=== PATIENT | male | born 1985 | race Caucasian/White ===

== ENCOUNTER 2017-01-19 16:48 | Emergency (ER) | payer BC, MEDICAID ==
[2017-01-19 16:54] VITALS: TEMP 99
--- NOTE | 2017-01-19 17:02 | C.PDOC ---
History Of Present Illness The patient, whose PMHx includes seizures, is brought to the ED by EMS for evaluation after experiencing a witnessed seizure episode prior to arrival. Patient states he missed a dose of his medication yesterday and was picking up his medication at the drugstore today prior to the onset of his symptoms. Patient is no longer in postictal state and denies tongue injury, urinary/bowel incontinence, extremity numbness/weakness. Time Seen by Provider: 01/19/17 17:02 Chief Complaint (Nursing): Seizure History Per: Patient, EMS History/Exam Limitations: no limitations Recent Seizure Activity Began: Just Before Arrival Number Of Seizures: One Length Of Seizures (Duration): Unknown Precipitating Factor(s): Missed Dose Of Anti-seizure Medication Post-ictal Period: No Severity: Mild Pain Scale Rating Of: 2 Recent travel outside of the [place]: No Additional History Per: Patient, EMS Past Medical History Reviewed: Historical Data, Nursing Documentation, Vital Signs Vital Signs: Last Vital Signs Temp 99.0 F 01/19/17 16:53 Pulse 104 H 01/19/17 16:53 Resp 22 01/19/17 16:53 BP 122/76 01/19/17 16:53 Pulse Ox 99 01/19/17 17:55 - Medical History PMH: Kidney Stones ("I HAVE 6 STONES"), Chronic Kidney Disease, Seizures (LAST WAS 1YR AGO) Surgical History: No Surg Hx - [facility] Procedures RETROGRADE PYELOGRAM (12/31/13) URETERAL CATHETERIZATION (12/31/13) Family History: States: Unknown Family Hx - Social History Hx Tobacco Use: No Hx Alcohol Use: No Hx Substance Use: No - Immunization History Hx Tetanus Toxoid Vaccination: No Hx Influenza Vaccination: No Hx Pneumococcal Vaccination: No Review Of Systems Constitutional: Negative for: Fever, Chills Eyes: Negative for: Vision Change ENT: Negative for: Mouth Pain Cardiovascular: Negative for: Chest Pain, Palpitations Respiratory: Negative for: Cough, Shortness of Breath Gastrointestinal: Negative for: Nausea, Vomiting, Abdominal Pain Genitourinary: Negative for: Incontinence Skin: Negative for: Rash, Lesions, Jaundice, Bruising Neurological: Positive for: Seizures. Negative for: Weakness, Numbness, Change in Speech, Confusion, Altered Mental Status, Headache, Dizziness Physical Exam - Physical Exam Appears: Non-toxic, No Acute Distress Skin: Warm, Dry Head: Normacephalic Eye(s): bilateral: Normal Inspection Oral Mucosa: Moist Tongue: No Bite, No Bleeding Neck: Supple Chest: Symmetrical, No Deformity, No Tenderness Cardiovascular: Rhythm Regular, No Murmur Respiratory: No Rales, No Rhonchi, No Wheezing Gastrointestinal/Abdominal: Soft, No Tenderness Extremity: Normal ROM, Capillary Refill (less than 2 seconds ) Neurological/Psych: Oriented x3 Gait: Steady ED Course And Treatment - Laboratory Results Result Diagrams: 01/19/17 17:34 01/19/17 17:34 O2 Sat by Pulse Oximetry: 99 (on RA ) Pulse Ox Interpretation: Normal Progress Note: Bloodwork ordered and reviewed. Keppra IVP and IV Fluids administered. Reevaluation Time: 18:24 Reassessment Condition: Improved Disposition Counseled Patient/Family Regarding: Studies Performed, Diagnosis, Need For Followup - Disposition Referrals: Juan Daniel Cole MD [Medical Doctor] - Disposition: HOME/ ROUTINE Disposition Time: 17:02 Condition: FAIR Instructions: Epilepsy (DC) Forms: [employer] (Jordanian) - Clinical Impression Clinical Impression: Seizure - Scribe Statement The provider has reviewed the documentation as recorded by the Scribe (Doreen Ortiz) Provider Attestation: All medical record entries made by the Scribe were at my direction and personally dictated by me. I have reviewed the chart and agree that the record accurately reflects my personal performance of the history, physical exam, medical decision making, and the department course for this patient. I have also personally directed, reviewed, and agree with the discharge instructions and disposition.
[2017-01-19] MEDS ORDERED: Sodium Chloride 0.9% 500 ML IV ONE ×2 (17:11→17:35)
[2017-01-19] MEDS ORDERED: levETIRAcetam 500 MG in Sodium Chloride 0.9% 100 ML IVPB STA (17:35)
[2017-01-19 17:43] LABS: BASO % 0.4 % (0.0-2.0); EOS % 0.3 % (0.0-4.0); HEMATOCRIT 42.6 % (35.0-51.0); LYMPH # 3.4 K/uL (1.0-4.3); LYMPH % 35.1 % (20.0-40.0); MEAN CELL VOLUME 90.6 fL (80.0-94.0); MEAN CORPUSCULAR HEMOGLOBIN 30.4 pg (27.0-31.0); MEAN CORPUSCULAR HGB CONC 33.5 g/dL (33.0-37.0); MEAN PLATELET VOLUME 7.6 fL (7.2-11.7); MONO # 0.6 K/uL (0.0-0.8); MONO % 6.3 % (0.0-10.0); NRBC % 0.1 % (0.0-2.0); RED CELL DISTRIBUTION WIDTH 14.7 % (11.5-14.5); WHITE BLOOD COUNT 9.7 K/uL (4.8-10.8)
[2017-01-19 17:45] LABS: CHLORIDE 103 mmol/L (98-107)
[2017-01-19 17:46] LABS: POTASSIUM 3.5 mmol/L (3.6-5.2); SODIUM 138 mmol/L (132-148)
[2017-01-19 17:48] LABS: GFR AFRICAN-AMERICAN > 60
[2017-01-19 17:49] LABS: BLOOD UREA NITROGEN 11 mg/dL (9-20); CALCIUM 8.8 mg/dl (8.6-10.4); CARBON DIOXIDE 17 mmol/L (22-30); GLUCOSE,RANDOM 96 mg/dL (75-110)
[2017-01-19 18:45] VITALS: BP 112/78; PULSE 68; RESP 18; O2SAT 98
== END 2017-01-19 18:45 | disposition home or self-care (01) ==
LOC: C.ER 16:48
DX: G40.909 Epilepsy, unspecified, not intractable, without status epilepticus (principal)
CPT/HCPCS: 80048; 80299; 84591; 85025; 96374; 99285; J1953; J7040

== ENCOUNTER 2017-02-21 08:56 | Day surgery (SDC) | payer OTHER ==
[2017-02-21 09:37] VITALS: BMI 27.1
[2017-02-21] MEDS ORDERED: Propofol 10 mg/ml Inj (20 ML) ONE (10:57)
[2017-02-21] MEDS ORDERED: Lidocaine Hydrochloride 5 ML INJ ONE (10:57)
--- NOTE | 2017-02-21 11:04 | CP.SDSHP ---
Same Day Surgery H & P - History Proposed Procedure: EGD Pre-Op Diagnosis: see notes - Previous Medical/Surgical History Cardiac: Hypertension Misc: Other Pain: 4.Moderate Pain - Allergies Allergies: Allergies carbamazepine [From Tegretol] Allergy (Intermediate, Verified 02/21/17 09:36) RASH loratadine [From Claritin] Allergy (Intermediate, Verified 02/21/17 09:36) SWELLING shellfish derived Allergy (Intermediate, Verified 02/21/17 09:36) SWELLING - Physical Exam General Appearance: N Vital Signs: Vital Signs 02/21/17 10:04 Temperature 98.4 F Pulse Rate 62 Respiratory 19 Rate Blood Pressure 120/61 O2 Sat by Pulse 99 Oximetry Mental Status: Alert & Oriented x3 Neuro: WNL Heart: WNL Lungs: WNL GI: Other - {Optional Preform as Required} Breast: WNL Abdomen: Other Rectal: Other Integument: WNL : WNL Ortho: WNL ENT: WNL - Impression Pt. Evaluated Today:Candidate for Anesthesia & Procedure: Yes - Date & Time Time: 11:05 Short Stay Discharge - Short Stay Discharge Admitting Diagnosis/Reason for Visit: DYSPEPSIA Disposition: HOME/ ROUTINE
[2017-02-21 11:29] VITALS: TEMP 97.5
[2017-02-21 11:37] VITALS: O2SAT 100
[2017-02-21 12:02] VITALS: BP 101/60; PULSE 60; RESP 16
== END 2017-02-21 12:20 | disposition home or self-care (01) ==
LOC: C.ENDO 08:56
PROVIDERS: ATTEND Specialist
DX: K29.60 Other gastritis without bleeding (principal); K20.9 Esophagitis, unspecified
CPT/HCPCS: 43239; 88305; 88342; J2704

== ENCOUNTER 2017-02-28 08:01 | Day surgery (SDC) | payer OTHER ==
[2017-02-28 08:34] VITALS: BMI 27.6
[2017-02-28] MEDS ORDERED: Propofol 10 mg/ml Inj (20 ML) ONE ×2 (09:28→09:46)
--- NOTE | 2017-02-28 09:38 | CP.SDSHP ---
Same Day Surgery H & P - History Proposed Procedure: colonscopy Pre-Op Diagnosis: SEE NOTES - Previous Medical/Surgical History Neuro: Other Misc: Other Pain: 4.Moderate Pain - Allergies Allergies: Allergies carbamazepine [From Tegretol] Allergy (Intermediate, Verified 02/28/17 08:34) RASH loratadine [From Claritin] Allergy (Intermediate, Verified 02/28/17 08:34) SWELLING shellfish derived Allergy (Intermediate, Verified 02/28/17 08:34) SWELLING - Physical Exam General Appearance: N Vital Signs: Vital Signs 02/28/17 08:30 Temperature 97.7 F Pulse Rate 79 Respiratory 20 Rate Blood Pressure 119/61 O2 Sat by Pulse 98 Oximetry Mental Status: Alert & Oriented x3 Neuro: WNL Heart: WNL Lungs: WNL GI: Other - {Optional Preform as Required} Breast: WNL Abdomen: Other Rectal: Other Integument: WNL : WNL Ortho: Other ENT: WNL - Impression Pt. Evaluated Today:Candidate for Anesthesia & Procedure: Yes - Date & Time Time: 09:38 Short Stay Discharge - Short Stay Discharge Admitting Diagnosis/Reason for Visit: DIARRHEA Disposition: HOME/ ROUTINE
[2017-02-28] MEDS ORDERED: Belladonna-Phenobarbital PO STA (09:49)
[2017-02-28] MEDS ORDERED: metroNIDAZOLE IV 500 mg/100 ml 500 MG/100 ML BAG IVPB STA (09:51)
[2017-02-28 11:27] VITALS: TEMP 98; O2SAT 100
[2017-02-28 12:10] VITALS: BP 92/42; PULSE 60; RESP 18
== END 2017-02-28 11:45 | disposition home or self-care (01) ==
LOC: C.ENDO 08:01
PROVIDERS: ATTEND Specialist
DX: R19.7 Diarrhea, unspecified (principal); K64.8 Other hemorrhoids; K58.9 Irritable bowel syndrome, unspecified
CPT/HCPCS: 43239; 88305; J2704

== ENCOUNTER 2018-04-16 06:50 | Emergency (ER) | payer MEDICAID, OTHER ==
[2018-04-16 06:50] VITALS: BMI 27.6
[2018-04-16 07:01] VITALS: TEMP 98.7
[2018-04-16] MEDS ORDERED: Sodium Chloride 0.9% 1,000 ML IV ONE (07:16)
[2018-04-16] MEDS ORDERED: Sodium Chloride 0.9% 1,000 ML ONE (07:21)
[2018-04-16 07:30] LABS: BASO # 0.1 K/uL (0.0-0.2); BASO % 0.7 % (0.0-2.0); EOS # 0.2 K/uL (0.0-0.7); EOS % 2.3 % (0.0-4.0); HEMOGLOBIN 14.7 g/dL (12.0-18.0); LYMPH # 3.8 K/uL (1.0-4.3); MEAN CELL VOLUME 89.5 fL (80.0-94.0); MEAN CORPUSCULAR HGB CONC 33.5 g/dL (33.0-37.0); MEAN PLATELET VOLUME 7.2 fL (7.2-11.7); MONO # 0.6 K/uL (0.0-0.8); MONO % 7.5 % (0.0-10.0); NEUT # 3.4 K/uL (1.8-7.0); NEUT % 42.5 % (50.0-75.0); NRBC % 0.1 % (0.0-2.0); RBC 4.9 Mil/uL (4.40-5.90); WHITE BLOOD COUNT 8.1 K/uL (4.8-10.8)
[2018-04-16 07:37] LABS: URINE BILIRUBIN NEGATIVE (NEGATIVE); URINE BLOOD NEGATIVE (NEGATIVE); URINE CLARITY Clear (Clear); URINE COLOR Yellow (YELLOW); URINE GLUCOSE (UA) NORMAL (Normal); URINE LEUKOCYTE ESTERASE NEG Leu/uL (Negative); URINE PROTEIN NEGATIVE (NEGATIVE); URINE UROBILINOGEN NORMAL mg/dL (0.2-1.0)
[2018-04-16 07:43] LABS: BLOOD UREA NITROGEN 14 mg/dL (9-20); GFR NON-AFRICAN AMERICAN > 60; LIPASE 55 U/L (23-300)
[2018-04-16 07:59] VITALS: BP 125/85; PULSE 69; RESP 18
--- NOTE | 2018-04-16 08:01 | C.PDOC ---
History Of Present Illness 33 years old male with PMHx of epilepsy, IBS, and Kidney stones presents to ED for complaints of right flank pain associated with nausea, dysuria and burning sensation on urination that began 1 week ago. Patient reports taking prescribed marijuana, Tylenol, and Motrin for relief. Patient also reports symptoms are similar to prior kidney stone symptoms. Denies penile discharge, diarrhea, hematuria, abdominal pain, chest pain, or any other physical complaints. Patient also states he passed his first kidney stone in January 2018. Patient also admits to smoking but denies drug use. He states Past Surgical History sleeve gastrectomy. Allergies: * Shellfish * Claritin Time Seen by Provider: 04/16/18 07:06 Chief Complaint (Nursing): Male Genitourinary History Per: Patient History/Exam Limitations: no limitations Onset/Duration Of Symptoms: Hrs Current Symptoms Are (Timing): Still Present Quality Of Discomfort: Burning Associated Symptoms: Nausea, Urinary Symptoms. 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 Negative for: Vomiting, Abdominal Pain, Diarrhea Genitourinary: Positive for: Dysuria. Negative for: Hematuria Musculoskeletal: Positive for: Other (Right flank pain ) Skin: Negative for: Rash Neurological: Negative for: Weakness, Numbness Physical Exam - Physical Exam Appears: Non-toxic, No Acute Distress, Other (Comfortable ) Skin: Normal Color, Warm, Dry, No Rash Head: Atraumatic, Normacephalic Eye(s): bilateral: Normal Inspection (Conjunctiva clear), PERRL, EOMI Oral Mucosa: Moist Neck: Normal ROM, Supple Chest: Symmetrical, No Tenderness Cardiovascular: Rhythm Regular, No Murmur, Other (Normal S1, S2) Respiratory: Normal Breath Sounds, No Rales, No Rhonchi, No Wheezing, Other (Good air movement, Lungs CTA bilaterally) Gastrointestinal/Abdominal: Bowel Sounds (Active ), Soft, No Tenderness, No Guarding, No Rebound Back: CVA Tenderness (Right sided ) Extremity: Normal ROM Extremity: Bilateral: Atraumatic (no cyanosis or edema), Normal Color And Temperature, Normal ROM Pulses: Left Radial: Normal, Right Radial: Normal, Left Dorsalis Pedis: Normal, Right Dorsalis Pedis: Normal Neurological/Psych: Oriented x3, Normal Speech, Normal Motor (5/5 strength ), Normal Sensation, Other (GCS 15, CN 2-12 intact.) Gait: Steady ED Course And Treatment - Laboratory Results Result Diagrams: 04/16/18 07:25 04/16/18 07:25 O2 Sat by Pulse Oximetry: 99 (RA) Pulse Ox Interpretation: Normal - CT Scan/US CT Abdomen/Pelvis Other Rad Studies (CT/US): Read By Radiologist, Radiology Report Reviewed CT/US Interpretation: Date of service: 04/16/2018. PROCEDURE: CT Abdomen and Pelvis. HISTORY: Abdominal pain. COMPARISON: None. TECHNIQUE: Contiguous helical/transaxial sections of the abdomen pelvis performed without oral or intravenous contrast material. Additional 2D sagittal and coronal reformats generated. Radiation dose: Total exam DLP = 486.91 mGy-cm. This CT exam was performed using one or more of the following dose reduction techniques: Automated exposure control, adjustment of the mA and/or kV according to patient size, and/or use of iterative reconstruction technique. FINDINGS: LOWER THORAX: The heart size within range of normal. No significant pericardial effusion. There is a small hiatal hernia. There is tiny pleural-based nodular density associated with adjacent parenchymal scarring right posterior sulcus. Lung bases otherwise clear. No evidence of effusion or basilar pneumothorax. LIVER: Liver is upper limits of normal measuring nearly 18 cm in CC dimension. No obvious hepatic masses or collections seen on this noncontrast exam. No significant intrahepatic ductal dilatation. GALLBLADDER AND BILE DUCTS: Gallbladder is incompletely distended. No evidence of intraluminal gallbladder calculi. PANCREAS: Unremarkable. No mass. No ductal dilatation. SPLEEN: Unremarkable. No splenomegaly. ADRENALS: No adrenal lesions are identified. KIDNEYS AND URETERS: The kidneys demonstrate symmetric size. There is a punctate nonobstructing calcification mid to lower pole left right kidney. BLADDER: Urinary bladder is incompletely distended. No evidence of intraluminal urinary bladder calculi. . REPRODUCTIVE: The prostate gland measures approximately 3.6 cm in transverse dimension. There is a small prostatic calcification along the left posterolateral border of the prostate gland. . APPENDIX: The what is felt to represent a normal appendix best seen on axial image number [id number]. No evidence of periappendiceal inflammatory changes. BOWEL: Evaluation limited due to the lack of oral contrast material. Postoperative changes of gastric sleeve.. The visualized loops of small bowel exhibit normal contour and caliber however there are multiple loops of small bowel that exhibit fecalized content consistent with stasis. There is a moderate amount of stool seen throughout the large bowel consistent with mild fecal retention/constipation. Scattered colonic diverticula however no radiographic evidence of acute diverticulitis. PERITONEUM: Unremarkable. No fluid collection. No free air. LYMPH NODES: There are a few small scattered mesenteric lymph nodes nonspecific.. VASCULATURE: Unremarkable. No aortic aneurysm. No aortic atherosclerotic calcification or mural plaque present. BONES: No fracture or destructive lesion. OTHER FINDINGS: None. IMPRESSION: Postoperative changes of gastric sleeve. Findings consistent with mild fecal retention/constipation with mild amount of fecalized content within multiple loops of small bowel. There is a punctate nonobstructing calcification mid to lower pole right kidney. Medical Decision Making Medical Decision Making: Plan: * IV Fluids * Toradol * Urinalysis * Blood work * CT Abdomen&Pelvis Progress: Patient has no kidney stones, CT Reviewed. Patient currently states he is feeling better, denies any complaints at this time. Patient is stable for discharge and will be discharged. Patient advised to follow up with PMD and he is in agreement. Return if symptoms persist or worsen. Disposition Counseled Patient/Family Regarding: Studies Performed, Diagnosis, Need For Followup - Disposition Disposition: HOME/ ROUTINE Disposition Time: 10:58 Condition: GOOD Additional Instructions: DRAKE SCOTT, thank you for letting us take care of you today. Your provider was Ale Amin MD and you were treated for ABD PAIN. The emergency medical care you received today was directed at your acute symptoms. If you were prescribed any medication, please fill it and take as directed. It may take se veral days for your symptoms to resolve. Return to the Emergency Department if your symptoms worsen, do not improve, or if you have any other problems. Please contact your doctor for a follow up appointment. Bring any paperwork you were given at discharge with you along with any medications you are taking to your follow up visit. Our treatment cannot replace ongoing medical care by a primary care provider outside of the emergency department. Thank you for allowing the [facility] team to be part of your care today. Instructions: Flank Pain (DC) Forms: General Discharge Instructions, [employer] (Finnish) - Clinical Impression Clinical Impression: Flank pain - Scribe Statement The provider has reviewed the documentation as recorded by the Chavoibcarlota Ridley All medical record entries made by the Chavoibe were at my direction and personally dictated by me. I have reviewed the chart and agree that the record accurately reflects my personal performance of the history, physical exam, medical decision making, and the department course for this patient. I have also personally directed, reviewed, and agree with the discharge instructions and disposition.
[2018-04-16 08:02] VITALS: O2SAT 99
--- NOTE | 2018-04-16 10:02 | CT ---
Date of service: 04/16/2018 PROCEDURE: CT Abdomen and Pelvis. HISTORY: Abdominal pain. COMPARISON: None. TECHNIQUE: Contiguous helical/transaxial sections of the abdomen pelvis performed without oral or intravenous contrast material. Additional 2D sagittal and coronal reformats generated. Radiation dose: Total exam DLP = 486.91 mGy-cm. This CT exam was performed using one or more of the following dose reduction techniques: Automated exposure control, adjustment of the mA and/or kV according to patient size, and/or use of iterative reconstruction technique. FINDINGS: LOWER THORAX: The heart size within range of normal. No significant pericardial effusion. There is a small hiatal hernia. There is tiny pleural-based nodular density associated with adjacent parenchymal scarring right posterior sulcus. Lung bases otherwise clear. No evidence of effusion or basilar pneumothorax. LIVER: Liver is upper limits of normal measuring nearly 18 cm in CC dimension. No obvious hepatic masses or collections seen on this noncontrast exam. No significant intrahepatic ductal dilatation. GALLBLADDER AND BILE DUCTS: Gallbladder is incompletely distended. No evidence of intraluminal gallbladder calculi. PANCREAS: Unremarkable. No mass. No ductal dilatation. SPLEEN: Unremarkable. No splenomegaly. ADRENALS: No adrenal lesions are identified. KIDNEYS AND URETERS: The kidneys demonstrate symmetric size. There is a punctate nonobstructing calcification mid to lower pole left right kidney. BLADDER: Urinary bladder is incompletely distended. No evidence of intraluminal urinary bladder calculi. . REPRODUCTIVE: The prostate gland measures approximately 3.6 cm in transverse dimension. There is a small prostatic calcification along the left posterolateral border of the prostate gland. APPENDIX: The what is felt to represent a normal appendix best seen on axial image number [id number]. No evidence of periappendiceal inflammatory changes. BOWEL: Evaluation limited due to the lack of oral contrast material. Postoperative changes of gastric sleeve.. The visualized loops of small bowel exhibit normal contour and caliber however there are multiple loops of small bowel that exhibit fecalized content consistent with stasis. There is a moderate amount of stool seen throughout the large bowel consistent with mild fecal retention/constipation. Scattered colonic diverticula however no radiographic evidence of acute diverticulitis. PERITONEUM: Unremarkable. No fluid collection. No free air. LYMPH NODES: There are a few small scattered mesenteric lymph nodes nonspecific.. VASCULATURE: Unremarkable. No aortic aneurysm. No aortic atherosclerotic calcification or mural plaque present. BONES: No fracture or destructive lesion. OTHER FINDINGS: None. IMPRESSION: Postoperative changes of gastric sleeve. Findings consistent with mild fecal retention/constipation with mild amount of fecalized content within multiple loops of small bowel. There is a punctate nonobstructing calcification mid to lower pole right kidney.
== END 2018-04-16 11:21 | disposition home or self-care (01) ==
LOC: C.ER 06:50
DX: R10.9 Unspecified abdominal pain (principal)
CPT/HCPCS: 74176; 80048; 81001; 83690; 85025; 96361; 96374; 99285; J1885; J7030